=== PATIENT | female | born 1965 | race Caucasian/White ===

== ENCOUNTER 2017-05-10 09:53 | Day surgery (SDC) ==
[2017-05-10] MEDS ORDERED: LIDOCAINE 1% 20 ML MDV ID STA (11:17)
[2017-05-10] MEDS ORDERED: ROMAZICON IVP ONE (12:40)
[2017-05-10] MEDS ORDERED: DIPRIVAN 20 ML VIAL IVP ONE (12:40)
[2017-05-10] MEDS ORDERED: VERSED ONE (12:40)
[2017-05-10 15:19] VITALS: BP 114/67; TEMP 98.6
--- NOTE | 2017-05-11 10:38 | OP ---
PROCEDURE: COLONOSCOPY TO THE CECUM WITH COLD SNARE POLYPECTOMY. ENDOSCOPIST: Buddy YANEZ M.D. INDICATION: FAMILY HISTORY OF COLON CANCER IN A FIRST DEGREE RELATIVE; SCREENING EXAM. NO PREVIOUS COLONOSCOPY. INSTRUMENT: Reflektion-190. MEDICATION: PER ANESTHESIA. PROCEDURE: The patient was positioned for colonoscopy. The digital rectal exam was negative. The colonoscope was inserted through the anus and advanced to the cecum. The cecum was identified using the ileocecal valve and the appendiceal orifice as landmarks. The scope was slowly withdrawn through an adequately prepped colon. Diverticula were noted scattered throughout the colon. A small polyp at 20 cm removed using cold snare polypectomy. Retroflex exam was otherwise normal. Withdrawal time 9 minutes and 15 seconds. PLAN: 1. Repeat exam in 5 years CC: DR. MAMADOU CLARK
== END 2017-05-10 13:50 | disposition home or self-care (01) ==
LOC: SURG 09:53
PROVIDERS: ATTEND Internal Medicine Gastroenterology
DX: Z12.11 Encounter for screening for malignant neoplasm of colon (principal); D12.5 Benign neoplasm of sigmoid colon; K57.30 Diverticulosis of large intestine without perforation or abscess without bleeding; Z80.0 Family history of malignant neoplasm of digestive organs